=== PATIENT | female | born 2000 | race Two or more races ===

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

== ENCOUNTER 2024-01-04 19:15 | Emergency (ER) | payer BC, OTHER ==
[~2024-01-04] VITALS: Ht 162.6 cm; Wt 75.2 kg
[2024-01-04] MEDS: ondansetron/PF 4mg/2ml inj IV ONE (19:40)
[2024-01-04 20:01] LABS: ALANINE AMINOTRANSFERASE 36 U/L (12-78); ALBUMIN 3.8 G/DL (3.4-5.0); ALBUMIN/GLOBULIN RATIO 0.9 (1.1-1.5); ALKALINE PHOSPHATASE 85 IU/L (46-116); ANION GAP 8 (8-16); ASPARTATE AMINO TRANSFERASE 53 U/L (10-37); BASOPHILS # (AUTO) 0.1 X10'3 (0-0.2); BASOPHILS % (AUTO) 0.7 % (0-1); BILIRUBIN,TOTAL 0.1 MG/DL (0.1-1.0); BLOOD UREA NITROGEN 11 MG/DL (7-18); BUN/CREATININE RATIO 15.9 (10.0-20.0); CHLORIDE 104 MMOL/L (99-107); CREATININE 0.69 MG/DL (0.40-0.90); EOSINOPHILS # (AUTO) 0.1 X10'3 (0-0.9); EOSINOPHILS % (AUTO) 1.5 % (0-6); GLUCOSE 80 MG/DL (70-104); HEMATOCRIT 38.8 % (35.0-45.0); HEMOGLOBIN 12.9 g/dl (12.0-16.0); LYMPHOCYTES % (AUTO) 44.8 % (21-51); MEAN CORPUSCULAR HEMOGLOBIN 30.7 PG (27.0-31.0); MEAN CORPUSCULAR HGB CONC 33.4 g/dL (33.0-36.5); MEAN PLATELET VOLUME 7.4 FL (7.4-10.4); MONOCYTES # (AUTO) 0.6 X10'3 (0-0.9); MONOCYTES % (AUTO) 6.8 % (2-12); NEUTROPHILS # (AUTO) 4.1 X10'3 (1.8-7.7); NEUTROPHILS % (AUTO) 46.2 % (42-75); PLATELET COUNT 251 X10'3 (140-440); POTASSIUM 3.8 MMOL/L (3.5-5.1); RED BLOOD COUNT 4.22 X10'6 (4.20-5.60); RED CELL DISTRIBUTION WIDTH 13.1 % (11.5-14.5); SODIUM 139 MMOL/L (135-145); TOTAL CARBON DIOXIDE 27.2 MMOL/L (24-32); TOTAL PROTEIN 8.1 G/DL (6.4-8.2); WHITE BLOOD COUNT 8.9 X10'3 (4.5-11.0); eCRCL 110 ML/MIN; eGFR > 90 ML/MIN
[2024-01-04 20:17] LABS: HCG SERUM QL NEGATIVE
[2024-01-04] MEDS: normal saline 1000ml 1,000 ML IV ONE (20:45)
[2024-01-04] MEDS: meclizine 12.5mg tablet PO ONE (22:06)
[2024-01-04] MEDS ORDERED: MECL-302 PO (22:26)
[2024-01-04 22:37] LABS: BILIRUBIN,URINE NEGATIVE (Neg); CLARITY,URINE CLEAR (Clear); COLOR,URINE YELLOW (Yellow); GLUCOSE, URINE NEGATIVE (Neg); KETONES,URINE NEGATIVE (Neg); LEUKOCYTE ESTERASE ,URINE NEGATIVE (Neg); NITRITES, URINE NEGATIVE (Neg); OCCULT BLOOD,URINE NEGATIVE (Neg); PROTEIN,URINE NEGATIVE (Neg); UROBILINOGEN,URINE 0.2 E.U/dL (0.2-1.0)
[2024-01-04 22:38] VITALS: BP 118/73; PULSE 98; RESP 16; TEMP 97.5; O2SAT 98
[2024-01-04 22:48] LABS: UA COLLECTION TYPE VOIDED
== END 2024-01-04 22:40 | disposition home or self-care (01) ==
LOC: ER 19:15
DX: R42 Dizziness and giddiness (principal); Z79.899 Other long term (current) drug therapy
CPT/HCPCS: 36415; 80053; 81003; 84703; 85025; 93005; 99284; J7030; J8597

== ENCOUNTER 2024-07-24 23:28 | Emergency (ER) | payer OTHER ==
[~2024-07-24] VITALS: Ht 162.6 cm; Wt 68.2 kg
[~2024-07-24 23:28] MED LIST: MECL-302 PO
[2024-07-24 23:29] VITALS: TEMP 98.2
[2024-07-25 00:38] VITALS: BP 112/79; PULSE 68; RESP 17; O2SAT 98
== END 2024-07-25 00:40 | disposition home or self-care (01) ==
LOC: ER 23:29 → EEVIPCON 23:29 → ER 07-25 00:40
DX: Z32.02 Encounter for pregnancy test, result negative (principal)
CPT/HCPCS: 36415; 84702; 99283